=== PATIENT | male | born 1980 ===

== ENCOUNTER 2021-02-23 00:09 | Emergency (ER) | payer SELFPAY ==
--- NOTE | 2021-02-23 02:56 | ER ---
Nurse's Notes [facility] Name: Indio Josue Age: 40 yrs Sex: Male : 1980 Arrival Date: 02/23/2021 Time: 00:25 Bed 30 Private MD: Diagnosis: Sunburn of first degree Presentation: 02/23 00:25 Chief complaint: EMS states: AMS Pt stated that he 5 times and his organs where kg harvest. Coronavirus screen: Client denies travel out of the [place] in the last 14 days. At this time, unable to obtain information related to travel outside the [place] At this time, the client does not indicate any symptoms associated with coronavirus-19. Ebola Screen: Patient negative for fever greater than or equal to 101.5 degrees Fahrenheit, and additional compatible Ebola Virus Disease symptoms Patient denies exposure to infectious person. Patient denies travel to an Ebola-affected area in the 21 days before illness onset. Initial Sepsis Screen: Does the patient meet any 2 criteria? No. Patient's initial sepsis screen is negative. Does the patient have a suspected source of infection? No. Patient's initial sepsis screen is negative. Risk Assessment: Do you want to hurt yourself or someone else? Patient reports no desire to harm self or others. Onset of symptoms was February 22, 2021. 00:25 Method Of Arrival: Ambulatory kg 00:25 Acuity: ZACK 4 kg Triage Assessment: 00:28 General: Appears in no apparent distress. Behavior is calm, cooperative, appropriate kg for age, quiet. Pain: Complains of pain in back. Historical: - Allergies: : Unable to obtain; kg - Home Meds: : Unable to obtain [Active]; kg - PMHx: : Unable to Obtain; kg - PSHx: : Unable to Obtain; kg - Immunization history:: Adult Immunizations not up to date, Client reports having NOT received the Covid vaccine. - Social history:: Smoking status: unknown. Screenin:29 Abuse screen: Denies threats or abuse. Denies injuries from another. Nutritional kg screening: No deficits noted. Tuberculosis screening: No symptoms or risk factors identified. Fall Risk None identified. Assessment: 02:15 General: Appears in no apparent distress. slender, unkempt, Behavior is calm. Pain: lp1 Complains of pain in back. Neuro: Level of Consciousness is awake, alert, obeys commands, Oriented to person, place, situation. Cardiovascular: Patient's skin is warm and dry. Respiratory: Airway is patent Respiratory effort is even, unlabored. GI: Abdomen is flat. : No signs and/or symptoms were reported regarding the genitourinary system. EENT: No signs and/or symptoms were reported regarding the EENT system. Derm: Skin is thin, has blisters on Small blisters to skin in different stages of healing to bilateral forearms, peeling skin appears to be from previous sunburn, quarter size blister to mid posterior back, no erythema noted Skin is dry, Skin is normal. Musculoskeletal: No deficits noted. 03:15 Reassessment: Patient resting, eyes closed, respirations even, unlabored;. lp1 Vital Signs: 00:25 BP 112 / 80; Pulse 113; Resp 20; Temp 98.5(O); Pulse Ox 95% on R/A; Weight 60.33 kg; kg Height 6 ft. 1 in. (185.42 cm); Pain 10/10; 00:25 Body Mass Index 17.55 (60.33 kg, 185.42 cm) kg ED Course: 00:25 Patient arrived in ED. bp1 00:28 Triage completed. kg 00:28 Arm band placed on right wrist. kg 00:29 Patient has correct armband on for positive identification. kg 01:59 Nik Sandoval PA is PHCP. [facility] 01:59 Timoteo Sanchez MD is Attending Physician. [facility] 05:02 No provider procedures requiring assistance completed. Patient did not have IV access lp1 during this emergency room visit. Administered Medications: No medications were administered Outcome: 02:55 Discharge ordered by . jm 05:06 Discharged to home ambulatory. lp1 05:06 Condition: good 05:06 Discharge instructions given to patient, Instructed on discharge instructions, follow up and referral plans. Demonstrated understanding of instructions, follow-up care. 05:06 Patient left the ED. lp1 Signatures: Nik Sandoval PA PA jmm Pena, Laura, RN RN lp1 Jeanine Olvera Kristen, RN RN kg Corrections: (The following items were deleted from the chart) 00:29 00:28 Allergies: No Known Allergies; kg kg
--- NOTE | 2021-02-23 02:56 | EDPHYS ---
Physician Documentation [facility] Name: Indio Josue Age: 40 yrs Sex: Male : 1980 Arrival Date: 02/23/2021 Time: 00:25 Bed 30 Private MD: ED Physician Timoteo Sanchez HPI: 02/23 02:01 This 40 yrs old Male presents to ER via Ambulatory with complaints of Altered Mental jmm Status. 02:01 Onset: The symptoms/episode began/occurred at an unknown time. This is a 40-year-old jmm male with no known chronic medical conditions presents emerged department with currently complaints of sunburn to the back. Patient denies suicidal ideation or homicidal ideation. Patient was brought in by EMS with concerns for psychosis. The patient told authorities that he had 5 times and his organs were harvested.. Historical: - Allergies: 00:28 Unable to obtain; kg - Home Meds: 00:28 Unable to obtain [Active]; kg - PMHx: 00:28 Unable to Obtain; kg - PSHx: 00:28 Unable to Obtain; kg - Immunization history:: Adult Immunizations not up to date, Client reports having NOT received the Covid vaccine. - Social history:: Smoking status: unknown. ROS: 02:01 Constitutional: Negative for fever, chills, and weight loss, Cardiovascular: Negative jmm for chest pain, palpitations, and edema, Respiratory: Negative for shortness of breath, cough, wheezing, and pleuritic chest pain. 02:01 Skin: Positive for burn. 02:01 All other systems are negative. Exam: 02:01 Constitutional: This is a well developed, well nourished patient who is awake, alert, jmm and in no acute distress. Head/Face: atraumatic. Eyes: EOMI, no conjunctival erythema appreciated ENT: Moist Mucus Membranes Neck: Trachea midline, Supple Chest/axilla: Normal chest wall appearance and motion. Cardiovascular: Regular rate and rhythm. No edema appreciated Respiratory: Normal respirations, no respiratory distress appreciated Abdomen/GI: Non distended, soft 02:01 Skin: Superficial nieves noted to the back with peeling skin, no surrounding erythema or induration or purulent drainage appreciated. 02:01 Neuro: Orientation: is normal, Mentation: is normal, Memory: is normal. 02:01 Psych: Behavior/mood is pleasant, cooperative. Vital Signs: 00:25 BP 112 / 80; Pulse 113; Resp 20; Temp 98.5(O); Pulse Ox 95% on R/A; Weight 60.33 kg; kg Height 6 ft. 1 in. (185.42 cm); Pain 10/10; 00:25 Body Mass Index 17.55 (60.33 kg, 185.42 cm) kg MDM: 02:01 Patient medically screened. [facility] 02:01 Data reviewed: vital signs, nurses notes. Counseling: I had a detailed discussion with paco the patient and/or guardian regarding: the historical points, exam findings, and any diagnostic results supporting the discharge/admit diagnosis, the need for outpatient follow up, to return to the emergency department if symptoms worsen or persist or if there are any questions or concerns that arise at home. 02/23 02:44 Order name: DADA [facility] 02/23 02:45 Order name: ABDe Arterial Blood Gas EDMS Administered Medications: No medications were administered Disposition: 05:35 Co-signature as Attending Physician, Timoteo Sanchez MD. [email or web address] Disposition Summary: 02/23/21 02:55 Discharge Ordered Location: Home [facility] Condition: Stable [facility] Diagnosis - Sunburn of first degree [facility] Followup: jm - With: Private Physician - When: 2 - 3 days - Reason: Recheck today's complaints, Continuance of care, Re-evaluation by your physician Discharge Instructions: - Discharge Summary Sheet jmm - Sunburn, Adult [facility] Forms: - Medication Reconciliation Form [facility] - Thank You Letter [facility] - Antibiotic Education [facility] - Prescription Opioid Use [facility] Signatures: Dispatcher [employer] EDMS Nik Sandoval PA PA Timoteo Carmen MD MD [email or web address] Alice Renteria, RN RN kg Corrections: (The following items were deleted from the chart) 00:29 00:28 Allergies: No Known Allergies; kg kg
[2021-02-23 04:16] LABS: Arterial Blood Carboxyhemoglob 9.3 % (0-1.5); Blood Gas Oxyhemoglobin 87.7 % (94-97); Blood O2 Saturation 97.8 % (92-98.5)
[2021-02-23 05:20] VITALS: BP 112/80; TEMP 98.5; O2SAT 95
== END 2021-02-23 05:06 | disposition home or self-care (01) ==
LOC: ER 00:09
DX: L55.0 Sunburn of first degree (principal)
CPT/HCPCS: 82805; 99281